=== PATIENT | female | born 1980 | race Caucasian/White ===

== ENCOUNTER 2016-04-17 10:43 | Day surgery (SDC) | payer OTHER ==
[~2016-04-17] VITALS: Ht 167.6 cm; Wt 68.0 kg
[~2016-04-17 10:43] MED LIST: ADVIL200 MG PO; AUGMENTIN875 MG PO; BIRTH CONTROL PILL; CLINDAMYCIN HC300 MG PO; ESCITALOPRAM OX10 MG PO; HYDROCODON-ACE1 EAC7 PO; LO LOESTRIN FE1 EACH PO; NORCO 5/3251 TABLET PO; PHENTERMINE; PHENTERMINE HCL30 MG PO; PRENATAL TABLE1 EAC3 PO; SPRINTEC1 EACH PO
[2016-04-17 11:22] VITALS: BP 116/55
[2016-04-17] MEDS ORDERED: ENDOCET 5-3251 EACH PO (14:23)
[2016-04-17] MEDS ORDERED: MOTRIN800 MG PO (14:23)
[2016-04-17 15:05] VITALS: BP 112/58
[2016-04-17 16:31] VITALS: BP 143/70
[2016-04-17 17:00] VITALS: BP 11/70
== END 2016-04-17 17:13 | disposition home or self-care (01) ==
LOC: SDC 10:43
DX: N92.0 Excessive and frequent menstruation with regular cycle (principal); Z30.2 Encounter for sterilization; E78.5 Hyperlipidemia, unspecified; M54.40 Lumbago with sciatica, unspecified side
CPT/HCPCS: 84702; 88305; J0131; J1100; J1170; J1885; J2250; J2405; J2710; J2765; J3010

== ENCOUNTER 2016-05-12 15:15 | Emergency (ER) | payer OTHER ==
[~2016-05-12] VITALS: Ht 167.6 cm; Wt 68.1 kg
[~2016-05-12 15:15] MED LIST changes: +ENDOCET 5-3251 EACH PO; +MOTRIN800 MG PO
[2016-05-12 16:33] LABS: EOSINOPHIL (%) 0.3 % (0-5); HEMATOCRIT 39.7 % (36.0-46.0); IMMATURE GRANULOCYTE (%) 0.1 % (0.0-0.7); IMMATURE GRANULOCYTE COUNT 0.1 K/uL; LYMPHOCYTE COUNT 0.2 K/uL (1.0-2.8); MCV 85.7 FL (83-99); MEAN PLAT.VOLUME 12.2 uM^3 (9.5-12.4); MONOCYTE COUNT 0.3 K/uL (0-0.8); NEUTROPHIL (%) 91.3 % (45-76); NEUTROPHIL COUNT 6.2 K/uL (1.8-6.4); PLATELET COUNT 131 K/uL (156-360); RBC DIS.WIDTH-CV 12.2 % (11.8-14.6); RBC DIS.WIDTH-SD 37.3 % (39-53); RED BLOOD COUNT 4.63 M/uL (3.80-5.20); WHITE BLOOD COUNT 6.8 K/uL (4.1-10.2)
[2016-05-12 16:43] LABS: CHLORIDE 104 mEq/L (99-109); POTASSIUM 3.8 mEq/L (3.7-5.4); SODIUM 140 mEq/L (136-147)
[2016-05-12 16:45] LABS: GLUCOSE 117 mg/dL (70-99)
[2016-05-12 16:47] LABS: ANION GAP 11 MEQ/L (2-14); TOTAL BILIRUBIN 0.3 mg/dL (0.0-1.0)
[2016-05-12 16:49] LABS: ALKALINE PHOSPHATASE 82 IU/L (3-129); GFR ESTIMATE (CALCULATED) > 59 mL/min/
[2016-05-12 16:50] LABS: UREA NITROGEN (BUN) 9 mg/dL (9-23)
[2016-05-12 16:52] LABS: LIPASE 16 U/L (1.0-51.0)
[2016-05-12 17:00] LABS: QUANTITATIVE HCG < 4.0 MIU/ML
[2016-05-12 17:37] LABS: ADD MIUA? YES; BILIRUBIN NEGATIVE; BLOOD MODERATE; COLOR AMBER ((YELLOW)); GLUCOSE (STRIP) NEGATIVE; KETONES 20; LEUKOCYTES SMALL; NITRITE NEGATIVE; PROTEIN (STRIP) NEGATIVE; SPECIFIC GRAVITY 1.023 (1.000-1.030); UROBILINOGEN 0.2 MG/DL (0.2-1.0)
[2016-05-12 17:43] LABS: BACTERIA RARE /HPF; EPITHELIAL CELLS 1+ /HPF; HYALINE CASTS 0-5 /LPF; MUCUS 2+ /LPF; RED BLOOD CELLS 0-5 /HPF (0-5); WHITE BLOOD CELLS 20-30 /HPF (0-5)
[2016-05-12 18:22] LABS: C DIFF TOXIN NEGATIVE (NEGATIVE)
[2016-05-12 18:27] LABS: PROBE CHECK PASS; SPECIMEN PROCESSING CONTROL PASS
[2016-05-12] MEDS ORDERED: CIPRO500 MG PO (18:47)
[2016-05-12] MEDS ORDERED: FLAGYL500 MG PO (18:47)
[2016-05-12] MEDS ORDERED: ZOFRAN ODT4 MG PO (18:47)
[2016-05-12 23:02] VITALS: BP 99/58
[2016-05-13 10:10] LABS: HBSG INDEX 0.72; HPCA INDEX 0.09
[2016-05-13 10:11] LABS: ANTI-HEPATITIS A VIRUS (IGM) Nonreactive; HAV INDEX 0.18
[2016-05-13 10:12] LABS: ANTI-HEPATITIS B CORE (IGM) Nonreactive; HBC IgM INDEX 0.09
== END 2016-05-12 23:03 | disposition home or self-care (01) ==
LOC: EME 15:15
PROVIDERS: Physician Assistant
DX: K52.9 Noninfective gastroenteritis and colitis, unspecified (principal); R50.9 Fever, unspecified; E86.0 Dehydration; R00.0 Tachycardia, unspecified; Z98.890 Other specified postprocedural states; Z87.891 Personal history of nicotine dependence
CPT/HCPCS: 80053; 80074; 81003; 83605; 83690; 84702; 85025; 87493; 87506; 99281; 99285; J2405; J7030